=== PATIENT | male | born 1985 | race Caucasian/White ===

== ENCOUNTER 2022-04-24 21:35 | Emergency (ER) | payer BC ==
[~2022-04-24] VITALS: Ht 167.6 cm; Wt 100.0 kg
[2022-04-24] MEDS ORDERED: LIDOCAINE HCL/PF 1% 10 MG/ML 5ML VIAL INFIL ONE (23:45)
[2022-04-25] MEDS ORDERED: AMOX-494 MT (00:14)
[2022-04-25 00:28] VITALS: BP 124/78
== END 2022-04-25 00:30 | disposition home or self-care (01) ==
LOC: ER 21:52
DX: R68.84 Jaw pain (principal); M26.4 Malocclusion, unspecified; Y04.0XXA Assault by unarmed brawl or fight, initial encounter; Y93.89 Activity, other specified; Y92.512 Supermarket, store or market as the place of occurrence of the external cause; Y99.8 Other external cause status
CPT/HCPCS: 70486; 99284; J3490; Z7610